=== PATIENT | male | born 1960 | race Caucasian/White ===

== ENCOUNTER 2022-12-15 14:32 | Emergency (ER) | payer OTHER ==
[2022-12-15 15:03] LABS: BASOPHILS # (AUTO) 0.1 10^3/uL (0.0-0.1); BASOPHILS % (AUTO) 1.4 %; EOSINOPHILS # (AUTO) 0.6 10^3/uL (0.0-0.7); EOSINOPHILS % (AUTO) 7.6 %; HCT - HEMATOCRIT 47.5 % (42.0-52.0); HGB - HEMOGLOBIN 15.7 g/dL (14.0-18.0); LYMPHOCYTES # (AUTO) 1.7 10^3/uL (1.5-3.5); LYMPHOCYTES % (AUTO) 23.1 %; MEAN CORPUSCULAR HEMOGLOBIN 27.9 pg (27.0-31.0); MEAN CORPUSCULAR HGB CONC 33.1 g/dL (32.0-36.0); MEAN CORPUSCULAR VOLUME 84.5 fL (80.0-94.0); MEAN PLATELET VOLUME 9.7 fL (7.4-11.4); MONOCYTES # (AUTO) 0.5 10^3/uL (0.0-1.0); MONOCYTES % (AUTO) 6.5 %; NEUTROPHILS # (AUTO) 4.5 10^3/uL (1.5-6.6); NEUTROPHILS % (AUTO) 61.3 %; PLT - PLATELET COUNT 248 10^3/uL (130-450); RED BLOOD COUNT 5.62 10^6/uL (4.70-6.10); RED CELL DISTRIBUTION WIDTH 13.4 % (12.0-15.0); WHITE BLOOD COUNT 7.3 x10^3/uL (4.8-10.8)
--- NOTE | 2022-12-15 15:06 | XRAY Report ---
PROCEDURE: Chest 1 View X-Ray INDICATIONS: Chest pain TECHNIQUE: One view of the chest was acquired. COMPARISON: None. FINDINGS: Surgical changes and devices: None. Lungs and pleura: No pleural effusions or pneumothorax. Lungs are clear. Mediastinum: Mediastinal contours appear normal. Heart size is normal. Bones and chest wall: No suspicious bony lesions. Overlying soft tissues appear unremarkable. IMPRESSION: No evidence acute pulmonary process. Reviewed by: Hema Agee MD on 12/15/2022 3:05 PM PDT Approved by: Hema Agee MD on 12/15/2022 3:05 PM PDT Station ID: [id number]
[2022-12-15 15:27] LABS: ALBUMIN 4.4 g/dL (3.2-5.5); ALBUMIN/GLOBULIN RATIO 1.5 (1.0-2.2); BILIRUBIN,TOTAL 0.8 mg/dL (0.2-1.0); CALCIUM 9.8 mg/dL (8.5-10.3); CREATININE 0.8 mg/dL (0.6-1.2); POTASSIUM 4.1 mmol/L (3.5-5.0); TOTAL PROTEIN 7.4 g/dL (6.7-8.2)
--- NOTE | 2022-12-15 16:12 | ED Physician Documentation ---
PD HPI FOCAL NEURO - Stated complaint Stated Complaint: L ARM NUMBNESS - Chief complaint Chief Complaint: Cardiac - History obtained from History obtained from: Patient - History of Present Illness Weakness: No: Face, Arm, Hand, Leg, Foot, Right, Left Numbness: Arm, Left. No: Face, Hand, Leg, Foot, Right Associated symptoms: No: Headache, Nausea / vomiting, Seizure, Syncope, Fall, Head injury, Chest pain, Neck pain, Back pain, Fever Baseline status: positive: A&OX3, ambulatory, indep - Additional information Additional information: Patient is a 62-year-old male with a history of diabetes who presents to the emergency department complaining of left arm numbness for the past 1 week. He also has a history of hypertension and hyperlipidemia. Nothing seems to make his symptoms better or worse. No pain. No difficulty using the arm. He states that most of the numbness and tingling starts at the shoulder, goes down the bicep and down towards the thumb. Has not had any issues grasping objects. Has not had any difficulty with speech, no vision changes. He states that there is a strong family history of heart disease and strokes. He states most of his family members have from either strokes or heart attacks by the time they are in their 60s. Patient states [facility] so he has been out of his medication for about a month. Review of Systems Constitutional: denies: Fever, Chills Nose: denies: Rhinorrhea / runny nose, Congestion Cardiac: denies: Chest pain / pressure, Palpitations Respiratory: denies: Dyspnea, Cough GI: denies: Abdominal Pain, Abdominal Swelling, Nausea, Vomiting, Diarrhea : denies: Dysuria Skin: denies: Rash Musculoskeletal: denies: Neck pain, Back pain Neurologic: denies: Focal weakness, Headache, Head injury, LOC PD PAST MEDICAL HISTORY - Past Medical History Past Medical History: Yes Cardiovascular: Hypertension, High cholesterol Endocrine/Autoimmune: Type 2 diabetes - Allergies Allergies/Adverse Reactions: Allergies Allergy/AdvReac Type Severity Reaction Status Date / Time No Known Drug Allergies Allergy Verified 12/15/22 14:37 - Living Situation Living Situation: reports: With family Living Arrangement: reports: At home - Social History Does the pt smoke?: No Does the pt have substance abuse?: No - Family History Family history: reports: Non contributory PD ED PE NORMAL - Vitals Vital signs reviewed: Yes - General General: Alert and oriented X 3, No acute distress - HEENT HEENT: Atraumatic, PERRL, Ears normal, Moist mucous membranes, Pharynx benign - Neck Neck: Supple, no meningeal sign, No bony TTP, Thyroid normal - Cardiac Cardiac: RRR, Strong equal pulses - Respiratory Respiratory: No respiratory distress, Clear bilaterally - Abdomen Abdomen: Soft, Non tender, Non distended - Back Back: No CVA TTP, No spinal TTP - Derm Derm: Warm and dry - Extremities Extremities: No edema, No calf tenderness / cord - Neuro Neuro: Alert and oriented X 3, crochet beader 2-12 intact, No motor deficit, Other (Patient has decreased sensation in the C6 dermatome down the left arm. Otherwise normal examination of the arm and hand. No neck tenderness. No trapezial ridge numbness or tenderness.) Eye Opening: Spontaneous Motor: Obeys Commands Verbal: Oriented GCS Score: 15 - Psych Psych: Normal mood, Normal affect NIHSS - Time Time: 16:10 - Level of Consciousness Level of consciousness: (0) Alert, Keenly responsive LOC Questions: (0) Answers both Q's correct LOC Commands: (0) Performs both correctly - Gaze Best Gaze: (0) Normal - Visual Visual: (0) No loss - Facial Palsy Facial Palsy: (0) Normal, symmetrical movement - Motor Arms (both separate) Motor Arm (right): (0) No drift Motor Arm (left): (0) No drift - Motor Legs (both separate) Motor Leg (right): (0) No drift Motor Leg (left): (0) No drift - Limb Ataxia Limb Ataxia: (0) Absent - Sensory Sensory: (1) Uraj-au-nfhpdgji loss - Best Language Best Language: (0) No aphasia - Dysarthria Dysarthria: (0) Normal - Extinction and Inattention (formally neg Extinction and inattention: (0) No abnormality - Total Score/Results Total Score/Result: 1 Results - Vitals Vitals: Vital Signs - 24 hr 12/15/22 12/15/22 12/15/22 14:37 15:52 17:38 Temperature 36.8 C Heart Rate 64 64 78 Respiratory 16 16 16 Rate Blood Pressure 173/99 H 167/87 H 141/90 H O2 Saturation 97 93 98 Oxygen O2 Source Room air - EKG (time done) 1444 EKG releavant findings:: EKG personally interpreted by author of this note. Relevant findings are: Rate: Rate (enter#) (63) Rhythm: NSR [place]: LAD Intervals: Normal OK QRS: Normal Ischemia: Normal ST segments - Labs Labs: Laboratory Tests 12/15/22 12/15/22 12/15/22 14:59 14:59 14:59 WBC 7.3 RBC 5.62 Hgb 15.7 Hct 47.5 MCV 84.5 MCH 27.9 MCHC 33.1 RDW 13.4 Plt Count 248 MPV 9.7 Neut # (Auto) 4.5 Lymph # (Auto) 1.7 [place] # (Auto) 0.5 Eos # (Auto) 0.6 Baso # (Auto) 0.1 Absolute Nucleated RBC 0.00 Nucleated RBC % 0.0 Sodium 133 L Potassium 4.1 Chloride 96 L Carbon Dioxide 26 Anion Gap 11.0 BUN 16 Creatinine 0.8 Estimated GFR (MDRD) 99 Glucose 313 H Calcium 9.8 Total Bilirubin 0.8 AST 22 ALT 35 Alkaline Phosphatase 78 Troponin I High Sens 6.2 Total Protein 7.4 Albumin 4.4 Globulin 3.0 Albumin/Globulin Ratio 1.5 Lipase 46 - Rads (name of study) brain MRI Relevant Findings:: Final report received, See rad report (no acute abnormality) CTA head Relevant Findings:: Final report received, See rad report CT neck angio Relevant Findings:: Final report received, See rad report PD Medical Decision Making - ED course Complexity details: reviewed results, re-evaluated patient, considered differential, d/w patient ED course: 62-year-old male with what appears to be a C6 radiculopathy, however given his age, significant risk factors for stroke, several strokes and heart attacks in his family members around this age, a further work-up was performed. No acute findings on EKG. CBC and chemistries do not show any significant abnormalities other than elevated blood glucose. High-sensitivity troponin is negative. CT angiogram head and neck did not show any acute abnormalities and brain MRI does not show any evidence of stroke. We will continue supportive care and have him follow-up with his doctor for an MRI of the cervical spine and further care. P sidney is using the arm without difficulty. Patient counseled regarding signs and symptoms for which I believe and urgent re-evaluation would be necessary. Patient with good understanding of and agreement to plan and is comfortable going home at this time This document was made in part using voice recognition software. While efforts are made to proofread this document, sound alike and grammatical errors may occur. Departure - Departure Disposition: Home, Self Care Clinical Impression: Paresthesia Radiculopathy Qualifiers: Spinal region: unspecified Qualified Code(s): M54.10 - Radiculopathy, site unspecified Condition: Good Instructions: ED Paraesthesias Follow-Up: Bhanu Smith MD [Emergency Provider] - Comments: Please follow-up with your doctor for further care. Your MRI and angiogram did not show any acute abnormalities today. There is no evidence of stroke. You appear to be having symptoms in the C5/C6 dermatome. Your doctor may want to order an MRI of your neck for further evaluation. Please return if you worsen. Your heart test did not show any evidence of a heart attack. Discharge Date/Time: 12/15/22 18:43
[2022-12-15] MEDS ORDERED: iohexoL-300 100 ML VIAL ONE (16:17)
[2022-12-15] MEDS ORDERED: iohexoL-300 100 ML VIAL IVP ONE (17:26)
[2022-12-15 17:39] VITALS: BP 141/90
--- NOTE | 2022-12-15 18:16 | MRI Report ---
PROCEDURE: BRAIN WO INDICATIONS: L arm numbness x 1 week TECHNIQUE: Noncontrast axial T1 spin echo, axial T2 fast spin echo, sagittal and axial FLAIR, coronal T2 fast sp in echo, axial gradient echo, axial diffusion and ADC through the brain. COMPARISON: Correlation is made with the accompanying head CT angiogram and neck CT angiogram, 2022. FINDINGS: Image quality: Excellent. CSF Spaces: Basal cisterns are patent. No extra-axial fluid collections. Ventricles are normal in size and shape. Brain: No intracranial masses or hemorrhage. Cruz/white matter interface is normal. Brainstem appe ars normal. Diffusion-weighted images demonstrate no acute ischemic insult. No chronic ischemic ins ults. Normal intravascular flow voids are present. Age-appropriate brain parenchymal volume loss an d chronic small vessel ischemic change can be seen. Skull and face: Calvarium has normal marrow signal. Orbits appear normal. Sinuses: Sinuses and mastoids are clear. IMPRESSION: No findings of acute or subacute infarction are seen. Age-appropriate brain parenchymal volume loss and chronic small vessel ischemic change can be seen. Reviewed by: Enzo Wheeler MD on 12/15/2022 5:15 PM EMMA Approved by: Enzo Wheeler MD on 12/15/2022 5:15 PM [facility]WYATT Station ID: [id number]
--- NOTE | 2022-12-15 18:18 | CT Report ---
PROCEDURE: ANGIO NECK W INDICATIONS: L arm numbness x 1 week CONTRAST: 80ml OMnipauqe 300 TECHNIQUE: After the administration of intravenous contrast, 1.5 mm axial sections acquired from the aortic arch to the [place]. Coronal 3-D maximum intensity projection (MIP) and/or volume rendering ref ormats were then performed. For radiation dose reduction, the following was used: automated exposur e control, adjustment of mA and/or kV according to patient size. COMPARISON: None. FINDINGS: Image quality: Excellent. Carotid system: The great vessels demonstrate a conventional anatomy as they arise from the aortic a rch. Proximal right common carotid artery is not seen due to artifact. The left origin appears bill l. The common carotid arteries demonstrate normal calibers and courses. The bifurcation regions appe ar normal bilaterally. The internal carotid arteries demonstrate normal caliber and course. Posterior circulation: The origins of the vertebral arteries appear patent. The more superior porti ons of the vertebral arteries demonstrate normal course and caliber. They join to form a normal appe aring basilar artery. Soft tissues: There are numerous small bilateral cervical and supraclavicular region lymph nodes, mor e prominent in number rather than size. Prominent right axillary lymph nodes are partially seen. Bones: No suspicious bony lesions. Visualized cervical spine appears normally aligned. IMPRESSION: 1. No evidence of hemodynamically significant stenosis or dissection in the carotid or vertebral syst em. 2. Right axillary lymphadenopathy and numerous supraclavicular and bilateral cervical chain lymph nod es. Etiology is uncertain. Clinical correlation is recommended. The estimate of stenosis included in the report of the imaging study was calculated using the NASCET method Reviewed by: Bela Frausto MD on 12/15/2022 6:17 PM PDT Approved by: Bela Frausto MD on 12/15/2022 6:17 PM PDT Station ID: [id number]
--- NOTE | 2022-12-15 18:26 | CT Report ---
PROCEDURE: ANGIO HEAD W/WO INDICATIONS: L arm numbness x 1 week CONTRAST: 80ml OMnipauqe 300 TECHNIQUE: Precontrast 4.5 mm thick angled axial sections acquired from the foramen magnum to the vertex. Afte r the administration of intravenous contrast, 1 mm thick sections acquired through the [place] is. Postcontrast 4.5 mm thick sections then re-acquired from the foramen magnum to the vertex. 3-di mensional lbagqeg-jjihntnvl-lplzooitax (MIP) and/or volume rendering reformats were acquired of the c entral intracranial vasculature. For radiation dose reduction, the following was used: automated ex posure control, adjustment of mA and/or kV according to patient size. COMPARISON: Correlation is made with the accompanying neck CT and brain MRI, 12/15/2022. FINDINGS: Image quality: There is streak artifact seen through the skull base. Anterior circulation: Intracranial internal carotid arteries are normal in size and flow. Variant a natomy is seen, with the A1 segments joining together to form a relatively broad anterior communicati ng artery, with an infundibulum at the origin of the right A2 segment. The flow within the paired ant erior cerebral arteries is normal and symmetric. The flow within the middle cerebral arteries is nor mal and symmetric. No aneurysms are seen. Posterior circulation: Visualized portions of the vertebral arteries demonstrate normal caliber, and join to form a normal appearing basilar artery. Flow within the posterior cerebral arteries is norm al and symmetric. No aneurysms are seen. CSF spaces: Ventricles are normal in size and shape. Basal cisterns are patent. No extra-axial flu id collections. Brain: No midline shift. No intracranial bleeds or masses. Cruz-white matter interface appears int act. Skull and face: Calvarium and facial bones appear intact, without suspicious lesions. Sinuses: Visualized sinuses and mastoids are clear. IMPRESSION: No significant intracranial abnormality is seen. No intracranial hemorrhage is seen. No significant intracranial arterial abnormalities are seen. Reviewed by: Enzo Wheeler MD on 12/15/2022 5:24 PM AKDT Approved by: Enzo Wheeler MD on 12/15/2022 5:24 PM AKDT Station ID: [id number]
== END 2022-12-15 18:43 | disposition home or self-care (01) ==
LOC: ED 14:32
DX: R20.2 Paresthesia of skin (principal); M54.10 Radiculopathy, site unspecified; I10 Essential (primary) hypertension; E78.00 Pure hypercholesterolemia, unspecified; E11.9 Type 2 diabetes mellitus without complications
CPT/HCPCS: 36415; 70496; 70498; 70551; 71045; 80053; 83690; 84484; 85025; 93005; 99283; 99284; Q9967